=== PATIENT | female | born 1995 | race Caucasian/White ===

== ENCOUNTER 2020-08-04 17:21 | Emergency (ER) | payer OTHER ==
[2020-08-04 18:28] LABS: BASOPHIL 0.4 % (0-2); EOSINOPHIL 0.7 % (0-5); HCT 39.6 % (37.0-47.0); HGB 13.3 g/dl (12.5-16.0); LYMPHOCYTE 22.4 % (15-48); MCH 32.1 pg (25.0-31.0); MCHC 33.6 g/dL (32.0-36.0); MCV 95.7 fL (78.0-100.0); MONOCYTE 7.2 % (0-12); MPV 10.4 fL (6.0-9.5); NEUTROPHIL 69.2 % (41-80); NRBC 0; PLT 225 K/uL (150-400); RBC 4.14 M/uL (4.20-5.40); RDW 12.8 % (11.5-14.0); WBC 6.8 K/uL (4.0-10.5)
[2020-08-04 18:39] LABS: INR 1.06 (0.9-1.2); PROTHROMBIN TIME 13.1 SECONDS (11.4-13.6); PTT 25.9 SECONDS (22.2-34.7)
[2020-08-04 18:47] LABS: ALBUMIN 3.7 g/dL (3.4-5.0); BILIRUBIN - TOTAL 0.7 mg/dL (0.2-1.0); BUN/CREAT RATIO (CALC) 16.7 RATIO; CREATININE 0.6 mg/dL (0.51-0.95); GLOBULIN (CALCULATION) 3.7 g/dL; IRON % SATURATION 19.7 %SAT (20-50); POTASSIUM 3.8 mmol/L (3.5-5.1); TOTAL PROTEIN 7.4 g/dL (6.4-8.2)
== END 2020-08-04 20:16 | disposition home or self-care (01) ==
LOC: FER 17:21
PROVIDERS: Emergency Medicine
DX: N93.8 Other specified abnormal uterine and vaginal bleeding (principal)
CPT/HCPCS: 36415; 80053; 83540; 83550; 84702; 85025; 85610; 85730; 99284; J7030